=== PATIENT | male | born 1980 | race Caucasian/White ===

== ENCOUNTER → 2017-09-26 17:24 | Outpatient (CLI) | payer OTHER, SELFPAY ==
--- NOTE | 2017-09-26 17:31 | DI.MRI.S_ITS ---
PROCEDURE: MR HEAD/BRAIN WO/W CON INDICATIONS: BENIGN NEOPLASM OF CRANIAL NERVES TECHNIQUE: Noncontrast axial T1 spin echo, axial T2 fast spin echo, sagittal and axial FLAIR, coronal T2 fast spin echo, axial gradient echo, axial diffusion and ADC through the brain. After the administration of contrast, axial and coronal 3D VIBE or T1 spin echo with fat saturation through the brain. COMPARISON: Outside Facility, RG, MRI HEAD W/WO CONTRAST, 11/12/2016, 3:32. FINDINGS: Image quality: Excellent. CSF Spaces: Basal cisterns are patent. No extra-axial fluid collections. Ventricles are normal in size and shape. Brain: No midline shift. No intracranial bleeds or masses. Previously seen linear enhancement within the right internal auditory canal has moderately decreased, and is now mild. The brainstem appears normal. Diffusion-weighted images demonstrate no acute ischemic insults. No chronic ischemic insults. Normal intravascular flow voids are present. Skull and face: Right retrosigmoid craniotomy has been performed, as before. Calvarial marrow is otherwise normal in signal. Orbits appear normal. Sinuses: Sinuses and mastoids appear clear. IMPRESSION: 1. Postsurgical sequelae. 2. Decreasing linear enhancements within the right internal auditory canal. No evidence of recurrent neoplasm. Dictated by: Irving Madera M.D. on 09/27/2017 at 9:10 Approved by: Irving Madera M.D. on 09/27/2017 at 9:18
== END ==
PROVIDERS: Visit Provider Student in an Organized Health Care Education/Training Program
DX: D33.3 Benign neoplasm of cranial nerves (principal)
CPT/HCPCS: 70553; A9579

== ENCOUNTER → 2018-07-31 16:15 | Outpatient (CLI) | payer OTHER, SELFPAY ==
--- NOTE | 2018-07-31 16:17 | DI.MRI.S_ITS ---
PROCEDURE: MR HEAD/BRAIN WO/W CON INDICATIONS: VESTUBULAR [place]ANN[place] TECHNIQUE: Noncontrast sagittal T1 spin echo, axial T2 fast spin echo, axial FLAIR, axial gradient echo, axial diffusion and ADC through the brain. Axial/sagittal/coronal 3-D CISS, thin-slice axial T1 spin echo with fat saturation through the skull base. After the administration of contrast, axial and coronal thin-slice T1 spin echo with fat saturation through the skull base, axial T1 spin echo with fat saturation through the brain. COMPARISON: Outside Facility, RG, MRI HEAD W/WO CONTRAST, 11/03/2016, 9:11. [facility], MR, MR HEAD/BRAIN WO/W CON, 09/26/2017, 17:40. Outside Facility, RG, MRI HEAD W/WO CONTRAST, 11/12/2016, 3:32. FINDINGS: Image quality: Excellent. Internal auditory canal: There is postsurgical change in the right internal auditory canal. No recurrent mass. Subtle enhancement in the right internal artery canal has further decreased. CSF spaces: Ventricles are normal in size and shape. No extra-axial fluid collections. Basal cisterns are patent. Brain: No intracranial bleeds or mass effects. No abnormal intracranial enhancement. Diffusion weighted images show no acute ischemic insults. Herrera-white matter interface is intact. Brainstem is normal. Normal intravascular flow voids are present. Skull and face: Calvarial marrow signal is normal. Orbits appear normal. Sinuses: Sinuses and mastoids appear clear. IMPRESSION: Postsurgical changes in the right internal auditory canal. No recurrent mass or abnormal enhancement. Dictated by: Dee Cruz M.D. on 08/01/2018 at 10:05 Approved by: Dee Cruz M.D. on 08/01/2018 at 16:56
== END ==
PROVIDERS: Visit Provider General Practice
DX: D33.3 Benign neoplasm of cranial nerves (principal)
CPT/HCPCS: 70553; A9579

== ENCOUNTER → 2019-09-11 09:37 | Outpatient (CLI) | payer OTHER, SELFPAY ==
--- NOTE | 2019-09-11 | DI.MRI.S_ITS ---
PROCEDURE: MR HEAD/BRAIN WO/W CON INDICATIONS: Personal history of other benign neoplasm TECHNIQUE: Noncontrast axial T1 spin echo, axial T2 fast spin echo, sagittal and axial FLAIR, coronal T2 fast spin echo, axial gradient echo, axial diffusion and ADC through the brain. After the administration of contrast, axial and coronal 3D VIBE or T1 spin echo with fat saturation through the brain. COMPARISON: [facility], MR, MR HEAD/BRAIN WO/W CON, 07/31/2018, 17:09. [facility], MR, MR HEAD/BRAIN WO/W CON, 09/26/2017, 17:40. Outside Facility, RG, MRI HEAD W/WO CONTRAST, 11/12/2016, 3:32. Outside Facility, RG, MRI HEAD W/WO CONTRAST, 11/03/2016, 9:11. FINDINGS: Image quality: Excellent. CSF Spaces: Basal cisterns are patent. No extra-axial fluid collections. Ventricles are normal in size and shape. Brain: No midline shift. No intracranial bleeds or masses. No abnormal intracranial enhancement. The brainstem appears normal. Diffusion-weighted images demonstrate no acute ischemic insults. No chronic ischemic insults. Normal intravascular flow voids are present. Skull and face: Postoperative changes are seen of the right skull base/temporal bone. Calvarial marrow is normal in signal. Orbits appear normal. Sinuses: Sinuses and mastoids appear clear. IMPRESSION: No findings of masses or abnormal enhancement can be seen suggest recurrent tumor. Postoperative changes are seen the right skull base/temporal bone. Dictated by: Edison Pandey M.D. on 09/11/2019 at 9:33 Approved by: Edison Pandey M.D. on 09/11/2019 at 9:37
== END ==
DX: Z09 Encounter for follow-up examination after completed treatment for conditions other than malignant neoplasm (principal); Z86.018 Personal history of other benign neoplasm
CPT/HCPCS: 70553; A9579